=== PATIENT | male | born 1940 | race Caucasian/White ===

== ENCOUNTER → 2024-05-25 08:50 | Outpatient (BNVA) | payer MEDICARE, OTHER, SELFPAY | PROVIDERS: PCP Family Medicine; Referring Provider Family Medicine; Visit Provider Nurse Practitioner Gerontology | DX: N40.2 Nodular prostate without lower urinary tract symptoms (principal); R97.20 Elevated prostate specific antigen [PSA] | CPT/HCPCS: 51798; 81003; 99205 ==

== ENCOUNTER → 2024-06-14 13:17 | Outpatient (BNVA) | payer MEDICARE, OTHER, SELFPAY | PROVIDERS: PCP Family Medicine; Referring Provider Family Medicine; Visit Provider Urology | DX: N40.2 Nodular prostate without lower urinary tract symptoms (principal); R97.20 Elevated prostate specific antigen [PSA]; C61 Malignant neoplasm of prostate | CPT/HCPCS: 55700; 76872 ==

== ENCOUNTER 2024-06-14 14:34 | Outpatient (REF) | payer MEDICARE, OTHER, SELFPAY ==
--- NOTE | 2024-06-14 13:50 | PROST_PTH ---
PATIENT: Antonio Sandoval LOC: [facility] U#:[id number] AGE/SX: 84/M ROOM: RE06/14/[address]: Yobani Vera MD : 1940 BED: DIS: 06/14/2024 SPEC #: [id number] RECD: 06/14/24 17:15 STATUS: BRITTON REQ #: [id number] GLADIS: 06/14/24 13:[address]: Yobani Vera DEPT: Surgical Specimen RECD BY: Mee Pisano ENTERED: 06/14/24 17:16 SP TYPE: PROST OTHR DR: Joseph Deras Tissues: 1 - PROSTATE NEEDLE BIOPSY 2 - PROSTATE NEEDLE BIOPSY 3 - PROSTATE NEEDLE BIOPSY 4 - PROSTATE NEEDLE BIOPSY 5 - PROSTATE NEEDLE BIOPSY 6 - PROSTATE NEEDLE BIOPSY 7 - PROSTATE NEEDLE BIOPSY 8 - PROSTATE NEEDLE BIOPSY 9 - PROSTATE NEEDLE BIOPSY 10 - PROSTATE NEEDLE BIOPSY 11 - PROSTATE NEEDLE BIOPSY 12 - PROSTATE NEEDLE BIOPSY Procedures: GROSS AND MICRO LEVEL 4 Comments: [id number]
== END 2024-06-14 14:35 | disposition home or self-care (01) ==
LOC: LBN 14:34
PROVIDERS: PCP Family Medicine; Visit Provider Urology
DX: N40.0 Benign prostatic hyperplasia without lower urinary tract symptoms (principal)
CPT/HCPCS: 88305

== ENCOUNTER → 2024-06-29 10:42 | Outpatient (BNVA) | payer MEDICARE, OTHER, SELFPAY | PROVIDERS: PCP Family Medicine; Referring Provider Family Medicine; Visit Provider Urology | DX: C61 Malignant neoplasm of prostate (principal) | CPT/HCPCS: 99215 ==

== ENCOUNTER → 2024-08-03 10:31 | Outpatient (BNVA) | payer MEDICARE, SELFPAY | PROVIDERS: PCP Family Medicine; Referring Provider Family Medicine; Visit Provider Urology | DX: C61 Malignant neoplasm of prostate (principal) | CPT/HCPCS: 99215 ==